=== PATIENT | male | born 1935 | race Caucasian/White ===

== ENCOUNTER → 2019-09-16 | Outpatient (CLI) | payer MEDICARE | END | disposition home or self-care (01) | LOC: RAH 14:48 | PROVIDERS: ATTEND Psychiatry & Neurology Neurology | DX: I65.23 Occlusion and stenosis of bilateral carotid arteries (principal); R41.3 Other amnesia | CPT/HCPCS: 70450; 93880 ==

== ENCOUNTER → 2019-10-02 | Outpatient (CLI) | payer MEDICARE ==
[2019-10-02 12:37] LABS: CREATININE 1.9 mg/dL (0.5-1.5)
== END | disposition home or self-care (01) ==
LOC: LAB 11:35
PROVIDERS: ATTEND Internal Medicine Cardiovascular Disease
DX: I10 Essential (primary) hypertension (principal); I65.23 Occlusion and stenosis of bilateral carotid arteries
CPT/HCPCS: 36415; 82565; 84520

== ENCOUNTER → 2022-10-18 | Outpatient (CLI) | payer MEDICARE ==
[~2022-10-18] MED LIST: AEC81 PO; AMLO-257 PO; ATOR40TA71 PO; CHOL500062 PO; CLOP-31 PO; DONE5TAB33 PO; FISH1CAP50 PO; LEVO25TA54 PO; LOSA25TA41 PO; MEMA7CAP2 PO; METF-444 PO; MULT-1258 PO; Midodrine Hcl PO; THEO80EL3 PO; UBID100C10 PO; VITA0.4T20 PO
== END | disposition home or self-care (01) ==
LOC: RAH 07:56
PROVIDERS: ATTEND Internal Medicine Cardiovascular Disease
DX: N28.1 Cyst of kidney, acquired (principal); N27.0 Small kidney, unilateral; I70.1 Atherosclerosis of renal artery
CPT/HCPCS: 76770; 93975